=== PATIENT | male | born 2000 | race African-American/Black ===

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

== ENCOUNTER 2021-04-09 09:50 | Emergency (ER) | payer OTHER ==
[~2021-04-09] VITALS: Ht 175.3 cm; Wt 52.2 kg
[~2021-04-09 09:50] MED LIST: AFRIN15 ML NASAL; CETIRIZINE HCL5 MG PO; PREDNISONE 20 M20 MG PO
[2021-04-09 09:56] VITALS: BP 121/92
[2021-04-09] MEDS ORDERED: PREDNISONE 10 M10 MG PO (10:10)
== END 2021-04-09 10:30 | disposition home or self-care (01) ==
LOC: ER 09:50
DX: R22.0 Localized swelling, mass and lump, head (principal); Z79.899 Other long term (current) drug therapy; Z88.0 Allergy status to penicillin